=== PATIENT | female | born 1985 | race Caucasian/White ===

== ENCOUNTER 2020-01-01 08:49 | Outpatient (RCR) | payer OTHER, SELFPAY | END 2020-03-28 09:29 | disposition home or self-care (01) | LOC: ANHOBOP 08:49 | PROVIDERS: PCP Internal Medicine; Visit Provider Obstetrics & Gynecology | DX: O99.89 Other specified diseases and conditions complicating pregnancy, childbirth and the puerperium (principal); Z3A.27 27 weeks gestation of pregnancy | CPT/HCPCS: 59025 ==

== ENCOUNTER 2020-02-01 12:00 | Observation (INO) | payer OTHER, SELFPAY ==
[2020-02-01 12:15] VITALS: BP 115/65; PULSE 111
[2020-02-01 12:30] VITALS: BP 112/63; PULSE 105
[2020-02-01 12:45] VITALS: BP 112/60; PULSE 101
[2020-02-01 13:33] VITALS: BP 112/60; PULSE 101; RESP 13; TEMP 36.8
--- NOTE | 2020-02-03 07:41 | PM.OBTRLD ---
OB - Triage/Final Diagnosis Visit Information Reason for evaluation: threatened labor
== END 2020-02-01 13:41 | disposition home or self-care (01) ==
PROVIDERS: Admitting Provider Obstetrics & Gynecology; PCP Internal Medicine; Visit Provider Obstetrics & Gynecology
DX: O47.9 False labor, unspecified (principal); Z3A.00 Weeks of gestation of pregnancy not specified
CPT/HCPCS: G0378; G0379

== ENCOUNTER 2020-03-26 17:57 | Inpatient (IN) | payer OTHER, SELFPAY ==
[2020-03-26] VITALS (24 sets, daily range): BP systolic 86–129; BP diastolic 51–90; PULSE 78–146; TEMP 36.2–36.7
--- NOTE | 2020-03-26 18:47 | LDADM ---
This patient, Sharon Acuña, was admitted to Labor/Delivery/Recovery 108 on 03/26/20 at 17:57. Plans for labor, pain management and were discussed with patient. Patient/family oriented to hospital policies and general routines including ID bracelet, bed and alarms, visiting hours, pain management, procedures, bathroom and other care routines, personal items, smoking policy, room service/diet and guest tray routines, security routines, and visiting hours. Patient/Family are encouraged to report perceived risks to care and to ask questions if they do not understand what they are told or what they should do. See OBIX for further documentation.
[2020-03-26 19:02] LABS: Basophils Percent Auto 0.2 % (0.2-1.2); Eosinophils Percent Auto 0.4 % (0-4.4); Hematocrit 35.9 % (37.0-47.0); Hemoglobin 12.2 g/dL (12.0-15.0); Immature Granulocyte Absolute 0.04 K/mm3 (0.00-0.031); Immature Granulocyte Percent A 0.4 % (0-0.5); Lymphocytes Absolute Auto 1.87 K/mm3 (0.9-3.2); Lymphocytes Percent Auto 20.9 % (18.3-44.2); Mean Corpuscular Volume 88.2 fl (80-100); Mean Platelet Volume 10.5 fl (7.4-10.4); Monocytes Absolute Auto 0.6 K/mm3 (0.1-0.6); Monocytes Percent Auto 6.5 % (2.6-8.5); Neutrophils Absolute Auto 6.4 K/mm3 (1.3-6.7); Neutrophils Percent Auto 71.6 % (45.5-73.1); Platelet Count Result 276 k/mm3 (150-375); Red Blood Count 4.07 M/mm3 (4.2-5.4); Red Cell Distribution Width 12.6 % (11.5-14.5)
[2020-03-26] MEDS: DINOPROSTONE 10 MG VAG INSERT VAGINAL (19:58)
[2020-03-27] VITALS (150 sets, daily range): BP systolic 59–130; BP diastolic 19–108; PULSE 61–140; RESP 16–18; TEMP 36.1–37.2; O2SAT 94–100; BMI 38.7
[2020-03-27] MEDS: LACTATED RINGERS 1,000 ML 125 ML IV CONT ×2 (05:38→09:00)
[2020-03-27] MEDS: OXYTOCIN 30 UNITS/NS 500 ML 30 UNITS/500 ML BAG IV CONT (05:39)
[2020-03-27] MEDS: SODIUM CHLORIDE 0.9% IV 300 ML 600 ML I-UTERINE (07:15)
[2020-03-27 07:30] LABS: Rapid Plasma Reagin Non-Reactive (NonReactive)
--- NOTE | 2020-03-27 09:12 | WPDANESEPPF ---
Anes - Initial Pre Proc Eval Date/Time: 03/27/20 09:12 Surgeon: Azar Gonzalez MD Pre Op Diagnosis: Induction of Labor Patient Data Age: 35 Gender: F Height: 5 ft 6 in Weight: 109 kg Last Vital Signs Temp 36.6 C 03/27/20 07:30 Pulse 106 H 03/27/20 09:12 BP 94/69 L 03/27/20 09:12 Pulse Ox 96 03/27/20 09:11 Allergies Allergy/AdvReac Type Severity Reaction Status Date / Time Penicillins Allergy Intermediate Nausea,ITCH Verified 03/05/20 12:37 ING codeine AdvReac Mild Nausea and Verified 03/05/20 12:37 Vomiting Home Medications Medication Instructions Recorded Confirmed Type 1 tablet PO DAILY 02/01/20 03/27/20 History Laboratory Tests 03/26/20 03/26/20 03/26/20 18:32 18:32 18:32 WBC 9.0 K/mm3 K/mm3 (4.5-10.0) RBC 4.07 M/mm3 L M/mm3 (4.2-5.4) Hgb 12.2 g/dL g/dL (12.0-15.0) Hct 35.9 % L % (37.0-47.0) MCV 88.2 fl fl (80-100) MCH 30.0 pg pg (26-34) MCHC 34.0 g/dl g/dl (32-36) RDW 12.6 % % (11.5-14.5) Plt Count 276 k/mm3 k/mm3 (150-375) MPV 10.5 fl H fl (7.4-10.4) Immature Gran % (Auto) 0.4 % % (0-0.5) Neut % (Auto) 71.6 % % (45.5-73.1) Lymph % (Auto) 20.9 % % (18.3-44.2) [place] % (Auto) 6.5 % % (2.6-8.5) Eos % (Auto) 0.4 % % (0-4.4) Baso % (Auto) 0.2 % % (0.2-1.2) Lymph # (Auto) 1.87 K/mm3 K/mm3 (0.9-3.2) [place] # (Auto) 0.6 K/mm3 K/mm3 (0.1-0.6) Eos # (Auto) 0.0 K/mm3 K/mm3 (0-0.3) Baso # (Auto) 0.0 K/mm3 K/mm3 (0.0-0.1) Abs Immat Gran (auto) 0.04 K/mm3 H K/mm3 (0.00-0.031) Absolute Neuts (auto) 6.4 K/mm3 K/mm3 (1.3-6.7) Absolute Nucleated RBC 0.0 K/mm3 K/mm3 (0.0-0.012) Nucleated RBC % 0.0 % % (0.0-0.2) RPR Non-reactive (NonReactive) Blood Type A Positive Antibody Screen Negative Patient hx anesthesia problems: none Family hx anesthesia problems: none PMFSH Family History Family History Mother Bipolar 1 disorder Diabetes mellitus Chronic obstructive pulmonary disease Hypothyroid Grandparent Breast cancer Diabetes mellitus Chronic obstructive pulmonary disease Social History Social History Years smoked: 15 Smoking status: Former smoker Tobacco type: cigarettes Second hand tobacco smoke exposure: No Substance use: never Spiritual care concerns: No Anes - Eval Final PreProcedure Day of Procedure 03/27/20 09:12 Patient weight: obese Heart: regular rate and rhythm Lungs: decreased breath sounds Neurological: alert and oriented ASA classification: II Emergent: no Anesthetic plan: proceed Anesthesia type and monitoring: regional epidural and standard monitoring Informed Consent: The patient's anesthetic plan and its attendant risks and benefits were discussed with the patient/family/POA. Questions were solicited and answers provided to the satisfaction of the patient/family/POA.
[2020-03-27] MEDS: SODIUM CHLORIDE 0.9% IV 1,000 ML 150 ML I-UTERINE (09:19)
--- NOTE | 2020-03-27 12:16 | WPDHPUPDATE1 ---
History and Physical Update Update Date/Time: 03/27/20 12:16 History and Physical has been reviewed, including an updated exam of the patient. There are NO changes in the patient's condition. Risks, benefits, and alternatives have been discussed and questions answered. Patient agrees to proceed with procedure.
--- NOTE | 2020-03-27 12:16 | WPDOBADMIT ---
Obstetrics - Admit Note Admission Note: record reviewed. No pertinent additions to the history and/or any subsequent changes in the physical findings that are not consistent with the expected course of the were found. Elective induction of labor due to significant change in size compared to her last delivery and desires and of . Additions to the history and/or subsequent changes in the physical findings follow. None.
--- NOTE | 2020-03-27 12:17 | PM.OBPRVD ---
OB - Delivery Note Procedure Intrapartal events: Intolerance Route of delivery: Indication for instrumentation: nonreassuring FHR tracing Specimen: Yes Estimated blood loss (mL): 500 Anesthesia type: Epidural Disposition: floor Narrative: Patient prepped and draped in usual manner for this procedure. Pfannenstiel incision was made and carried down to the fascia. Fascial incision was extended bilaterally the length of the skin incision and then superiorly inferiorly dissected away from the rectus muscles. Peritoneum was entered bladder flap was developed uterus scored with clear fluid noted. Lower segment once incised bilaterally length of the lower segment with vertex delivered section naso-oropharynx rest of baby was delivered. Nuchal cord was noted and reduced and placenta was removed manually without difficulty. Uterus was exteriorized cleared of membranes and clots and then closed using 0 Monocryl running interlocking manner with good approximation hemostasis noted. Uterus was returned to the abdomen gutters were cleared of serosanguineous fluid and clots. All subfascial tissue was noted be hemostatic and fascia was approximated using 0 Vicryl suture from left angle midline right angle midline subcutaneous tissue was approximated using 0 plain suture. Skin was then approximated using wide alhaji and the procedure was considered terminated with immediate postop condition mother and baby both excellent. [place] Baby Weeks of gestation at delivery: 39 gender: Male Weight (pounds): 7 Weight (ounces): 15 score one minute: 8 score five minutes: 9
[2020-03-27] MEDS: OXYTOCIN 30 UNITS/NS 500 ML 30 UNITS/500 ML BAG 125 UNITS IV CONT (12:45)
--- NOTE | 2020-03-27 14:30 | PC.NURSE ---
PT arrived on unit via stretcher accompanied by spouse and and taken to room 284. PT introductions made and pt was oriented to room 284 and surrounding area. Plan of care discussed per post op c section, pain management, breast feeding, daily care activities. PT moved from stretcher to bed via maxi air without difficulty. Welcome packet discussed and reviewed. PT verbalized understanding of such care.
[2020-03-27] MEDS: SIMETHICONE 80 MG TAB.CHEW PO (16:33)
[2020-03-27] MEDS: KETOROLAC 30 MG/ML VIAL (*BKC) IV PUSH (16:34)
[2020-03-27] MEDS: DEXTROSE 5%/0.45% SOD CHL 1,000 ML 125 ML IV CONT (17:35)
[2020-03-27] MEDS: ONDANSETRON INJ 4 MG/2 ML VIAL IV PUSH (17:47)
[2020-03-27] MEDS: LORATADINE 10 MG TABLET PO (22:36)
[2020-03-27] MEDS: IBUPROFEN 600 MG TABLET PO (22:36)
[2020-03-28 00:20] VITALS: BP 94/56; PULSE 82; RESP 12; TEMP 36.9
[2020-03-28 05:10] VITALS: BP 100/58; PULSE 81; RESP 12; TEMP 36.6
[2020-03-28 05:29] LABS: Basophils Percent Auto 0.2 % (0.2-1.2); Eosinophils Absolute Auto 0.1 K/mm3 (0-0.3); Eosinophils Percent Auto 0.6 % (0-4.4); Hemoglobin 10.4 g/dL (12.0-15.0); Immature Granulocyte Absolute 0.04 K/mm3 (0.00-0.031); Immature Granulocyte Percent A 0.4 % (0-0.5); Lymphocytes Absolute Auto 2.11 K/mm3 (0.9-3.2); Lymphocytes Percent Auto 19.3 % (18.3-44.2); Mean Corpuscular HGB Conc 33.5 g/dl (32-36); Mean Corpuscular Hemoglobin 30.6 pg (26-34); Mean Corpuscular Volume 91.2 fl (80-100); Mean Platelet Volume 10.1 fl (7.4-10.4); Monocytes Absolute Auto 0.8 K/mm3 (0.1-0.6); Monocytes Percent Auto 6.8 % (2.6-8.5); Neutrophils Percent Auto 72.7 % (45.5-73.1); Platelet Count Result 214 k/mm3 (150-375); Red Cell Distribution Width 12.8 % (11.5-14.5)
[2020-03-28 08:20] VITALS: BP 99/56; PULSE 88; RESP 18; TEMP 36.6; O2SAT 100
--- NOTE | 2020-03-28 08:50 | PC.NURSE ---
Consult with pt., mother reports she has been using a nipple shield for all feedings. Requested mother call out next feeding for assist latching without shield.
[2020-03-28] MEDS: IBUPROFEN 600 MG TABLET PO ×3 (08:54→22:28)
[2020-03-28] MEDS: DOCUSATE SODIUM 100 MG CAPSULE PO ×2 (08:54→15:55)
[2020-03-28] MEDS: MULTIVIT/MIN/PREN/FOL AC/IRON TABLET 1 TAB PO (08:54)
--- NOTE | 2020-03-28 09:42 | PM.OBDSVD ---
OB - DS: Summary OB Procedures : None OB Procedures Intrapartum: OB Procedures: : None Peripartum Data Procedures: Procedures Operation Date: 03/27/20 11:30 Actual Procedures Side Surgeon p Section Azar Gonzalez MD Time Spent with Patient Time attestation: Total time spent providing and/or coordinating discharge services: DS: Data Data Completed and Pending Labs on day of discharge: Labs from last 24 hours 03/28/20 04:36 WBC 11.0 H RBC 3.40 L Hgb 10.4 L Hct 31.0 L MCV 91.2 MCH 30.6 MCHC 33.5 RDW 12.8 Plt Count 214 MPV 10.1 Immature Gran % (Auto) 0.4 Neut % (Auto) 72.7 Lymph % (Auto) 19.3 [place] % (Auto) 6.8 Eos % (Auto) 0.6 Baso % (Auto) 0.2 Lymph # (Auto) 2.11 [place] # (Auto) 0.8 H Eos # (Auto) 0.1 Baso # (Auto) 0.0 Abs Immat Gran (auto) 0.04 H Absolute Neuts (auto) 8.0 H Absolute Nucleated RBC 0.0 Nucleated RBC % 0.0 Discharge Plan Discharge Discharging Clinician: Azar Gonzalez Patient Disposition: Home, Self-Care Activity: as tolerated Diet: as tolerated Wound Care Instructions: incision open to air Discharge Instructions: alhaji out wednesday in office Patient Instructions: Antibiotic Form Stand Alone Forms: General Discharge Information Follow-up/Referrals: Azar Gonzalez MD [Physician] - 3 Weeks Discharge Medications: New hydrocodone-acetaminophen 5-325 mg Tablet 1 tab PO Q3H PRN (Reason: Moderate Pain (4-6)) Qty: 20 RF: 0 ibuprofen 600 mg Tablet 600 mg PO Q6H PRN (Reason: Cramping) Qty: 30 RF: 0 Continued 28-800 mg-mcg Tablet 1 tablet PO DAILY RF: 0 Date of admission: 03/26/20 17:57 Primary Care Provider: Naye,Kenn Jarvis Admitting Provider: Azar Gonzalez Attending physician on admission: Azar Gonzalez
--- NOTE | 2020-03-28 10:19 | WPDANLDNPN2 ---
Anes-Prog Note L&D-Neuraxial Date/Time: 03/28/20 10:19 Neuraxial medications: intrathecal PF morphine Opiod-related complaints: none Patient feedback: Patient satisfied with post-operative pain management.
--- NOTE | 2020-03-28 10:19 | WPDANLDPN2 ---
Anes-Prog Note L&D Date/Time: 03/28/20 10:19 Comfortable throughout: section Neuraxial method: spinal Epidural/Spinal procedure site: clean & non-tender Neuro status: Neuro function grossly intact. Cardiovascular status: normal Respiratory status: normal Airway patency: baseline Mental status: baseline Post-Op hydration status: normal Vital Signs: Last Vital Signs Temp 36.6 C 03/28/20 08:20 Pulse 88 03/28/20 08:20 Resp 18 03/28/20 08:20 BP 99/56 L 03/28/20 08:20 Pulse Ox 100 03/28/20 08:20 I/O: Intake & Output 03/27/20 03/28/20 03/28/20 23:59 07:59 15:59 Intake Total 600 2100 Output Total 400 2000 550 Balance 200 100 -550 Post-procedural complaints: none Patient feedback: Patient satisfied with anesthetic care.
--- NOTE | 2020-03-28 12:05 | PC.NURSE ---
Consulted with patient, mother report she used nipple shield fir with first for several months. Mother had milk supply issued and supplemented with first child. Discussed many factor may influence milk supply and she may have adequate supply with this child. Reviewed feeding cues, frequencies, duration of feedings, feeding elimination flow sheet, and signs of adequate intake. Demonstrated stimulation techniques to wake for feeding. Assisted with to breast. Reviewed positioning/alignment in cross cradle, holding breast in U hold and guided asymmetrical latch on. Discussed rational for each. Infant was able to latch correctly without shield. Infant nursed eagerly, with steady draws and frequent swallowing noted. Reviewed signs of a correct latch, effective nursing and suck swallow ratio. was able to maintain latch without discomfort to mother. Nipple care reviewed. Instructed mother to call out for RN assistance if she is unable to latch infant for feeding or she has discomfort with nursing. Instructed feeding should be initiated three hours from start of last feeding or if feeding cues are noted before. Mother voiced understanding of information shared.
--- NOTE | 2020-03-28 16:30 | PC.NURSE ---
Mother called out for observation of latch. Mother to independently latch infant with appropriate positioning/alignment without shield. She denies any nipple discomfort, is nursing with long draws and freq swallowing noted. Instructed mother to call out for future feedings if assistance is needed.
[2020-03-28 22:00] VITALS: BP 109/58; PULSE 88; RESP 20; TEMP 37.1
[2020-03-29] MEDS: IBUPROFEN 600 MG TABLET PO ×2 (06:40→13:41)
[2020-03-29] MEDS: MULTIVIT/MIN/PREN/FOL AC/IRON TABLET 1 TAB PO (08:24)
[2020-03-29] MEDS: DOCUSATE SODIUM 100 MG CAPSULE PO (08:24)
[2020-03-29] MEDS: MEASLES,MUMPS,RUBELLA VACCINE 0.5 ML VIAL (08:24)
[2020-03-29 08:30] VITALS: BP 99/63; PULSE 78; RESP 18; TEMP 36.9; O2SAT 96
--- NOTE | 2020-03-29 13:40 | PC.NURSE ---
Patient instructed to view the discharge video Mother & Baby Care, The First Two Weeks video. Patient was given the opportunity and encouraged to ask questions. Patient verbalized understanding of information shared and has been given the mother/baby guide for home reference.
[2020-04-01 09:53] VITALS: BP 113/76; PULSE 86; RESP 20; TEMP 37.1; O2SAT 99
--- NOTE | 2020-04-03 07:20 | PM.OBDSVD ---
DS: Diagnosis Admitting Diagnosis Admitting Diagnosis: Encounter for supervision of normal , unspecified, third trimester OB - DS: Summary OB Procedures : None OB Procedures Intrapartum: OB Procedures: : None Peripartum Data Procedures: Procedures Operation Date: 03/27/20 11:30 Actual Procedures Side Surgeon p Section Azar Gonzalez MD Time Spent with Patient Time attestation: Total time spent providing and/or coordinating discharge services: Discharge Plan Discharge Consulting providers: Rodrigo Rodriguez Discharging Clinician: Azar Gonzalez Patient Disposition: Home, Self-Care Activity: as tolerated Diet: as tolerated Wound Care Instructions: incision open to air Discharge Instructions: alhaji out wednesday in office Education: Mom and Baby Guide and Preeclampsia Handout Given to: Mother Follow-Up: Call your delivering provider's office for an appointment to be seen in: 3 weeks Mom and baby should come to the [facility] for the follow-up appointment. Appointment Date/Time: April 01, 2020 at 10:00 am What to expect at your follow-up visit: Physical Assessment Call [phone] if you are unable to keep your appointment time. BREAST CARE: 1. Wear a snug supportive bra. 2. For engorgement discomfort: Breast Feeding: A. Apply warm moist washcloths B. Express milk as needed to relieve engorgement C. Wear loose clothing 3. For sore nipples: A. Identify correct latch-on B. Apply warm moist washcloths before and after nursing C. Air dry nipples after nursing D. May apply Lansinoh cream to nipples ABDOMINAL INCISION: (if applicable) 1. Allow incision to air dry 2. Do NOT use lotions for powders on your incision 3. When showering, allow soap and water to run over the incision, but do not wash incision EPISIOTOMY/PERINEAL CARE: 1. Until bleeding stops, use your maricarmen bottle after urinating 2. Change your pad frequently throughout the day 3. No tub baths until seen by your physician - You may shower ACTIVITY: 1. Rest as much as possible. 2. Do not exercise or lift anything heavier than your baby (such as laundry or other children.) 3. Avoid stairs or driving as much as possible. 4. Do not put anything into the vagina. No douching, tampons, or sexual activity until seen by physician. NOTIFY PHYSICIAN IF YOU HAVE ANY QUESTIONS OR IF ANY OF THE FOLLOWING SYMPTOMS OCCUR: 1. If your incision becomes red, swollen, or more painful than what you have experienced in the hospital. 2. If your vaginal bleeding becomes foul smelling. 3. If your vaginal bleeding becomes more heavy than a period or if your bleeding changes from pink to bright red. However, you may pass an occasional walnut-sized clot once or twice for the first week . 4. If you experience a sharp, shooting pain in you calves. 5. If you discover a hard, reddened area on your breast or if you experience flu-like symptoms. DIET: 1. Eat regular, well-balanced meals. 2. Drink plenty of fluids daily. If , drink to thirst. Stand Alone Forms: General Discharge Information Follow-up/Referrals: Azar Gonzalez MD [Physician] - 3 Weeks Discharge Medications: New hydrocodone-acetaminophen 5-325 mg Tablet 1 tab PO Q3H PRN (Reason: Moderate Pain (4-6)) Qty: 20 RF: 0 ibuprofen 600 mg Tablet 600 mg PO Q6H PRN (Reason: Cramping) Qty: 30 RF: 0 Continued 28-800 mg-mcg Tablet 1 tablet PO DAILY RF: 0 Date of admission: 03/26/20 17:57 Primary Care Provider: Naye,Kenn Jarvis Admitting Provider: Azar Gonzalez Discharge Date/Time: 03/29/20 14:20 Attending physician on admission: Azar Gonzalez
--- NOTE | 2020-04-30 07:11 | PM.IMHP ---
H&P: HPI History of Present Illness Chief complaint: Induction of Labor Narrative: Sharon Acuña is a 35 year old female 2 para 1011 presents for elective induction of labor she has had care with no significant abnormalities records are on the chart. Review of Systems Review of Systems: All systems reviewed & are unremarkable except as noted in HPI and below PMFSH Family History Family History Mother Bipolar 1 disorder Diabetes mellitus Chronic obstructive pulmonary disease Hypothyroid Grandparent Breast cancer Diabetes mellitus Chronic obstructive pulmonary disease Social History Social History Years smoked: 15 Smoking status: Former smoker Tobacco type: cigarettes Second hand tobacco smoke exposure: No Substance use: never Spiritual care concerns: No Meds Home Medications and Allergies Home Medications Medication Instructions Recorded Confirmed Type 1 tablet PO DAILY 02/01/20 03/27/20 History hydrocodone-acetaminophen 1 tab PO Q3H PRN #20 tablet 03/28/20 Rx ibuprofen 600 mg PO Q6H PRN #30 tablet 03/28/20 Rx Allergies Allergy/AdvReac Type Severity Reaction Status Date / Time Penicillins Allergy Intermediate Nausea,ITCH Verified 03/05/20 12:37 ING codeine AdvReac Mild Nausea and Verified 03/05/20 12:37 Vomiting Exam Const: General: no acute distress Resp: Auscultation: clear to auscultation bilaterally Cardio: Rate: regular rate Rhythm: regular rhythm GI: GI Palp: Yes Soft to palpation Other: Fundal height 40cm. heart tones 130-140. Assessment and Plan Assessment and plan (1) Term : Code(s): Z34.90 - Encounter for supervision of normal , unspecified, unspecified trimester Status: Acute Additional Plan 1. Amniotomy 2. Pitocin per protocol 3. Expect vaginal delivery
== END 2020-03-29 14:20 | disposition home or self-care (01) | DRG 788 ==
LOC: ANHLDR 18:00 → ANHOB2 03-27 14:56
PROVIDERS: Admitting Provider Obstetrics & Gynecology; PCP Internal Medicine; Visit Provider Obstetrics & Gynecology
PROC: 10D00Z1 Extraction of Products of Conception, Low, Open Approach (ICD-10-PCS; CPT 59514; 2020-03-27 11:30)
DX: O36.8330 Maternal care for abnormalities of the fetal heart rate or rhythm, third trimester, not applicable or unspecified (principal); Z37.0 Single live birth; Z3A.39 39 weeks gestation of pregnancy; O99.214 Obesity complicating childbirth; E66.9 Obesity, unspecified; O69.81X0 Labor and delivery complicated by cord around neck, without compression, not applicable or unspecified
CPT/HCPCS: 36415; 85025; 86592; 86850; 86900; 86901; 90710; A9270; J0131; J0690; J1885; J2274; J2405; J2590; J2795; J7030; J7120

== ENCOUNTER → 2021-12-15 13:39 | Outpatient (CLI) | payer OTHER, SELFPAY ==
--- NOTE | ~2021-12-15 | CT_ITS ---
EXAMINATION: CT brain wo con DATE: 12/15/2021 13:57 INDICATION: Left frontal headache. Scalp tenderness. TECHNIQUE: Computed tomography (CT) of the head was performed without intravenous contrast. The mA wa s adjusted according to patient size. Iterative reconstruction technique was employed. Exam dose: 59 9.57 mGy-cm total exam DLP. COMPARISON: None FINDINGS: No intracranial mass lesion or hemorrhage or cerebrovascular accident. No midline shift or mass effect. Normal hurtado-white matter differentiation. Normal ventricular size. No subdural or epidur al hematoma. No fracture or bone destruction of the cranial vault. Included paranasal sinuses and mastoid air cell s are unremarkable. IMPRESSION: Negative Reviewed, dictated and finalized at [facility] Reviewed, dictated and finalized at [facility]. OPERATOR IMPRESSION: Negative
== END ==
PROVIDERS: PCP Physician Assistant; Visit Provider Physician Assistant
DX: R51.9 Headache, unspecified (principal)
CPT/HCPCS: 70450

== ENCOUNTER 2022-04-06 14:38 | Emergency (ER) | payer OTHER, SELFPAY ==
[2022-04-06 14:47] VITALS: BP 133/69; PULSE 95; RESP 16; TEMP 36.9; O2SAT 100
[2022-04-06 14:49] VITALS: BP 133/69; PULSE 95; RESP 16; TEMP 36.9; O2SAT 100
--- NOTE | 2022-04-06 15:09 | ED.SKABFB ---
HPI - Skin/Abscess/Foreign Bdy General Chief complaint: Skin/Abscess/Foreign Body Stated complaint: boil on left inner thigh Time Seen by Provider: 04/06/22 15:10 Source: patient and RN notes reviewed Mode of arrival: ambulatory Limitations: no limitations History of Present Illness HPI narrative: 37-year-old female presents with concern for a boil on her left inner thigh near her groin. 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 Reports over the last 2 weeks it started getting larger and over the last 3 to 4 days has gotten red, inflamed and had a small amount of brown drainage. She reports area is tender to touch. She denies fever, body aches, chills, sweats. MD complaint: abscess/boil Related Data Allergies Allergy/AdvReac Type Severity Reaction Status Date / Time Penicillins Allergy Intermediate Nausea,ITCH Verified 04/06/22 14:48 ING codeine AdvReac Mild Nausea and Verified 04/06/22 14:48 Vomiting Review of Systems Review of Systems: CONSTITUTIONAL: Denies malaise, chills, sweats, or fever. EYES: Denies redness, or discharge. ENT: Denies rhinorrhea, congestion CARDIOVASCULAR: Denies chest pain, palpitations, or edema. RESPIRATORY: Denies cough or dyspnea. GASTROINTESTINAL: Denies abdominal pain, nausea, vomiting SKIN: Reports boil on her left inner thigh MUSCULOSKELETAL: Denies joint pain or myalgia. NEUROLOGIC: Denies headache. All systems reviewed & are unremarkable except as noted in HPI and below PMFSH Family History Family History Mother Bipolar 1 disorder Diabetes mellitus Chronic obstructive pulmonary disease Hypothyroid Grandparent Breast cancer Diabetes mellitus Chronic obstructive pulmonary disease Social History Social History Years smoked: 15 Smoking status: Former smoker Tobacco type: cigarettes Second hand tobacco smoke exposure: No Substance use: never Spiritual care concerns: No Comments At time of signature, agree with nursing past medical, surgical, social and family history. There is no relevant family history pertinent to the presenting complaint Exam Narrative: GENERAL: Well-appearing, well-nourished, and in no acute distress. HEAD: Normocephalic, atraumatic. EYES: PERRLA, conjunctivae clear ENT: Mucous membranes moist. NECK: Supple. No lymphadenopathy CHEST: Clear to auscultation. No respiratory distress. HEART: Regular rate and rhythm. SKIN: Warm, dry. Palpable nodule approximately 2.5 cm in diameter beneath the skin surrounded by approximately 7 cm of erythema and mild edema with warmth NEURO: Alert and oriented x3. PSYCH: Normal mood and affect Course Course Emergency Course: Patient is aware of diagnosis, understands and agrees to treatment plan. Anticipatory guidance given. Patient agrees to follow-up as directed and is aware of reasons to seek care at the emergency department. Portions of this record may have been created with voice recognition software Level of Care: Express Care Visit Vital Signs Vital signs: Vital Signs Temperature 98.4 F 04/06/22 14:47 Pulse Rate 95 04/06/22 14:47 Respiratory Rate 16 04/06/22 14:47 Blood Pressure 133/69 04/06/22 14:47 Pulse Oximetry 100 04/06/22 14:47 Temperature 98.4 F 04/06/22 14:49 Pulse Rate 95 04/06/22 14:49 Respiratory Rate 16 04/06/22 14:49 Blood Pressure 133/69 04/06/22 14:49 Pulse Oximetry 100 04/06/22 14:49 Reviewed. Procedures Abscess I/D lower extremity: Date of Incision: 04/06/22 Time of Incision: 15:14 Side (if applicable): left Local Anesthetic: lidocaine 1% Amount of anesthesia used (mL): 3 Technique: incised with #11 blade Amount of fluid expressed (mL): 3 Irrigation: Yes Packing used?: no
== END 2022-04-06 15:36 | disposition home or self-care (01) ==
PROVIDERS: Emergency Provider Nurse Practitioner; PCP Physician Assistant
DX: L02.416 Cutaneous abscess of left lower limb (principal); Z87.891 Personal history of nicotine dependence
CPT/HCPCS: 10060; 87070; 87075; 87076; 87205; 99213; G0463

== ENCOUNTER 2022-04-19 13:28 | Emergency (ER) | payer OTHER, SELFPAY ==
--- NOTE | ~2022-04-19 | US_ITS ---
EXAMINATION: US soft tissue LE DATE: 04/19/2022 15:43 INDICATION: TECHNIQUE: Grayscale and Doppler ultrasound images of the left thigh in the area of clinical concern were obtained. COMPARISON: None. FINDINGS: 1.0 x 1.9 x 0.4 cm elliptical, fairly well-circumscribed hypoechoic subdermal lesion with s ome irregular margins, according to the patient this is the site of prior drainage. No internal color Doppler flow. No significant flocculence on compression. IMPRESSION: 1. Hypoechoic dermal lesion, in the location of previously drained abscess, may represent residual/r esolving abscess or phlegmon, or new pustule/infected cyst. Reviewed, dictated and finalized at location K. IMPRESSION: 1. Hypoechoic dermal lesion, in the location of previously drained abscess, ma y represent residual/resolving abscess or phlegmon, or new pustule/infected cys t.
[2022-04-19 13:30] VITALS: BP 118/59; PULSE 89; RESP 16; TEMP 36.4; O2SAT 98
--- NOTE | 2022-04-19 13:42 | ED.SKABFB ---
HPI - Skin/Abscess/Foreign Bdy General Chief complaint: Skin/Abscess/Foreign Body Stated complaint: abcess to left groin area Time Seen by Provider: 04/19/22 13:34 Source: patient Mode of arrival: ambulatory Limitations: no limitations History of Present Illness HPI narrative: This is a 37 year old female that presents to the ER for swelling and redness to the left upper thigh. Reports she had the area drained earlier this month. She finished a course of Bactrim with relief and the area was healing. Reports over the last couple of days the area has started to become painful and red again. Reports some drainage from the area. Denies fevers. Related Data Allergies Allergy/AdvReac Type Severity Reaction Status Date / Time Penicillins Allergy Intermediate Nausea,ITCH Verified 04/19/22 13:30 ING codeine AdvReac Mild Nausea and Verified 04/19/22 13:30 Vomiting Review of Systems Review of Systems: CONSTITUTIONAL: Denies fever SKIN: Reports redness and swelling All systems reviewed & are unremarkable except as noted in HPI and below PMFSH Past Medical History Medical History (Updated 04/19/22 @ 16:35 by Beatriz Arce PA-C) No active medical problems Family History Family History Mother Bipolar 1 disorder Diabetes mellitus Chronic obstructive pulmonary disease Hypothyroid Grandparent Breast cancer Diabetes mellitus Chronic obstructive pulmonary disease Social History Social History Years smoked: 15 Smoking status: Former smoker Tobacco type: cigarettes Second hand tobacco smoke exposure: No Substance use: never Spiritual care concerns: No Exam Narrative: GENERAL: Well-appearing, well-nourished, and in no acute distress. HEAD: Normocephalic, atraumatic. EYES: EOMI. EXTREMITIES: Normal range of motion. 2cm cystic lesion to the left upper thigh with mild surrounding redness. No lymphangitic streaking SKIN: Warm, dry, no rash. NEURO: No focal deficits. Alert and oriented x3. PSYCH: Normal mood and affect Course Vital Signs Vital signs: Vital Signs Temperature 97.5 F L 04/19/22 13:30 Pulse Rate 89 04/19/22 13:30 Respiratory Rate 16 04/19/22 13:30 Blood Pressure 118/59 L 04/19/22 13:30 Pulse Oximetry 98 04/19/22 13:30 Temperature 97.5 F L 04/19/22 13:30 Pulse Rate 89 04/19/22 13:30 Respiratory Rate 16 04/19/22 13:30 Blood Pressure 118/59 L 04/19/22 13:30 Pulse Oximetry 98 04/19/22 13:30 Procedures Abscess I/D lower extremity: Date of Incision: 04/19/22 Time of Incision: 16:32 Side (if applicable): left Local Anesthetic: lidocaine 1% and with epi Amount of anesthesia used (mL): 2 Technique: incised with #11 blade Packing used?: none I&D Results: Blood MDM - Skin/Abscess/Foreign Bdy MDM Narrative Medical decision making narrative: Patient presents to the ER for possible abscess to the left groin area. She is afebrile and nontoxic appearing. Mild surrounding cellulitis of a cystic lesion is noted. US of the area showed a hypoechoic dermal lesion which could represent residual/resolving abscess or phlegmon or new pustule/infected cyst. I attempted to drain this area which only produced blood. Patient will be started on oral antibiotics and given follow-up with plastics since this is now become recurrent for her. She is stable and felt appropriate for further outpatient evaluation. She was given warnings to return to the ER Imaging Data Radiologist's impression: ITS Impressions Soft Tissue Ultrasound 04/19/22 15:45 IMPRESSION: 1. Hypoechoic dermal lesion, in the location of previously drained abscess, may represent residual/resolving abscess or phlegmon, or new pustule/infected cyst. Critical Care Time Critical Care Time Critical Care Time: No Discharge Plan Disc
== END 2022-04-19 17:06 | disposition home or self-care (01) ==
PROVIDERS: Emergency Provider Emergency Medicine; PCP Physician Assistant
DX: L02.214 Cutaneous abscess of groin (principal); Z87.891 Personal history of nicotine dependence
CPT/HCPCS: 10060; 76882; 99284; A9270

== ENCOUNTER 2022-07-09 15:49 | Outpatient (CLI) | payer OTHER, SELFPAY ==
--- NOTE | ~2022-07-09 | US_ITS ---
EXAMINATION: US carotid duplex BI DATE: 07/09/2022 16:22 INDICATION: Left carotid bruit TECHNIQUE: Grayscale, color Doppler, and pulsed Doppler images of the cervical carotid arteries were obtained. The degree of vessel stenosis is placed in one of the following categories: normal, <50%, 5 0-69%, >=70% but less than near-occlusion, near-occlusion, or total occlusion. Note that percent sten osis relative to normal distal artery lumen diameter is indirectly measured from velocity measurement s as described by Bebeto, et al. Radiology 2003; 229:340-346. Notes: Normal: Peak systolic velocity <125 centimeters/sec and no plaque <50%. Peak systolic velocity <125 ( EDV <40; ICA/CCA PSV ratio <2.0; used these factors only a tandem lesions or low cardiac output or co ntralateral disease) 50-69 %: PSV 125-230 (EDV 40-100; ratio 2-4) >= 70% but less than near occlusion: PSV greater than 230 (EDV > 100; ratio> 4.0) Near Occlusion: PSV that is variable; markedly narrowed lumen Occlusion: Absent flow on color/spectral Doppler and no lumen on hurtado scale. COMPARISON: None. FINDINGS: RIGHT: The right common carotid artery (CCA) peak systolic velocity (PSV) is 108 cm/s. The right internal ca rotid artery (ICA) PSV is 147 cm/s. The right ICA end-diastolic velocity (EDV) is 43 cm/s. The right ICA/CCA PSV ratio is 1.4. The external carotid artery (ECA) PSV is 137 cm/s. There is antegrade flow in the right vertebral artery. LEFT: The left CCA PSV is 134 cm/s. The left ICA PSV is 129 cm/s. The left ICA EDV is 43 cm/s. The left ICA /CCA PSV ratio is 1.0. The ECA PSV is 136 cm/s. There is antegrade flow in the left vertebral artery . IMPRESSION: 1. 50-69% stenosis in the right internal carotid artery by sonographic criteria. 2. 50-69% stenosis in the left internal carotid artery by sonographic criteria. Reviewed, dictated and finalized at location A. IMPRESSION: 1. 50-69% stenosis in the right internal carotid artery by sonographic criteria . 2. 50-69% stenosis in the left internal carotid artery by sonographic criteria.
== END 2022-07-09 15:50 | disposition home or self-care (01) ==
PROVIDERS: PCP Physician Assistant; Visit Provider Physician Assistant
DX: R09.89 Other specified symptoms and signs involving the circulatory and respiratory systems (principal); I65.23 Occlusion and stenosis of bilateral carotid arteries
CPT/HCPCS: 93880

== ENCOUNTER → 2022-07-23 09:51 | Outpatient (CLI) | payer OTHER, SELFPAY ==
--- NOTE | ~2022-07-23 | MR_ITS ---
EXAMINATION: MR brain/brain stem wo/w con DATE: 07/23/2022 10:35 INDICATION: Temporal headache. TECHNIQUE: Magnetic resonance imaging (MRI) of the brain and brainstem was performed without and with 17 mL MultiHance intravenous contrast. COMPARISON: Head CT 12/15/21 FINDINGS: There is no intracranial hemorrhage, acute infarction, or abnormal intracranial mass lesion . The ventricles are normal in size. There is mild mucosal thickening in the ethmoid sinuses. The orb its are normal. The mastoid air cells are normal. IMPRESSION: 1. Normal brain. Reviewed, dictated and finalized at location A. IMPRESSION: 1. Normal brain.
== END ==
PROVIDERS: PCP Physician Assistant; Visit Provider Physician Assistant
DX: R51.9 Headache, unspecified (principal)
CPT/HCPCS: 70553; A9577

== ENCOUNTER 2023-03-09 17:44 | Emergency (ER) | payer BC, SELFPAY ==
[2023-03-09 17:54] VITALS: BP 114/60; PULSE 81; RESP 16; TEMP 36.8; O2SAT 100
[2023-03-09 17:55] VITALS: BP 114/60; PULSE 81; RESP 16; TEMP 36.8; O2SAT 100
--- NOTE | 2023-03-09 18:05 | ED.GENADULT ---
HPI - General Adult General Chief complaint: Upper Respiratory Infection Stated complaint: Sore Throat Source: patient Mode of arrival: ambulatory Limitations: no limitations History of Present Illness HPI narrative: patient presents for evaluation of sore throat for the last 4 days. She had a fever yesterday. She has mild bilateral ear pain and some cervical lymphadenopathy. She denies any chills, nausea, vomiting, diarrhea, shortness of breath, cough. 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 She does smoke approximately half a pack per day and also smokes marijuana. She is not taking any medications to assist with her symptoms. Related Data Allergies Allergy/AdvReac Type Severity Reaction Status Date / Time Penicillins Allergy Intermediate Nausea,ITCH Verified 03/09/23 17:54 ING codeine AdvReac Mild Nausea and Verified 03/09/23 17:54 Vomiting Review of Systems Review of Systems: CONSTITUTIONAL: Reports recent fever, none currently. Denies chills, or sweats. EYES: Denies visual changes, redness, or discharge. ENT: Reports sore throat and bilateral ear pain. Denies rhinorrhea, congestion CARDIOVASCULAR: Denies chest pain, palpitations, or edema. RESPIRATORY: Denies cough or dyspnea. GASTROINTESTINAL: Denies abdominal pain, nausea, vomiting, or diarrhea. GENITOURINARY: Denies dysuria or hematuria. SKIN: Denies rash or itching. MUSCULOSKELETAL: Denies back pain, joint pain, or myalgia. LYMPHATIC: reports cervical lymphadenopathy NEUROLOGIC: Denies headache, numbness, dizziness, or weakness. PSYCHIATRIC: Denies anxiety or depression. [facility] Past Medical History Medical History No active medical problems Surgical History Surgical History (Updated 07/20/22 @ 09:27 by Virginia Jennings MA) Delivery by section History of gynecological procedure mirena iud insertion - 04/29/2020 nola insertion -11/05/2016 removal 11/10/2018 [place] teeth removed Family History Family History Mother Bipolar 1 disorder Diabetes mellitus Chronic obstructive pulmonary disease Hypothyroid Grandparent Breast cancer Diabetes mellitus Chronic obstructive pulmonary disease Social History Social History (Updated 03/09/23 @ 18:12 by Miles Shay, [facility], ) Smoking packs per day: 0.5 Smoking cigarettes per day: 10.0 Years smoked: 15 Smoking pack-years: 7.50 Smoking status: Current every day smoker Tobacco type: cigarettes Second hand tobacco smoke exposure: No Substance use: current Substance use type: marijuana Spiritual care concerns: No Exam Narrative: GENERAL: Well-appearing, well-nourished, and in no acute distress. HEAD: Normocephalic, atraumatic. EYES: PERRLA and EOMI. ENT: Nares clear, no rhinorrhea or epistaxis. Mucous membranes moist. Bilateral tonsillar enlargement and erythema. No exudate. Uvula is midline. Bilateral TMs pearly hurtado nonbulging NECK: Supple. No adenopathy or masses. No carotid bruits or JVD CHEST: Clear to auscultation. No respiratory distress. No wheezes rales or rhonchi HEART: Regular rate and rhythm. No murmur heard. Normal peripheral pulses. ABDOMEN: Soft, nontender, nondistended, normal active bowel sounds. EXTREMITIES: Normal range of motion. No edema. SKIN: Warm, dry, no rash. NEURO: No focal deficits. Alert and oriented x3. PSYCH: Normal mood and affect. Course Course Emergency Course: This is a 38-year-old female who presented for evaluation sore throat after recent strep exposure. Strep positive. Will treat with amoxicillin. I did verify that she can take that and she is not allergic. Increase hydration. [id number] agents for symptom management. Advised on smoking cessation. Follow-up with primary provider. Go to the ER for difficulty breathing or swelling. Patient i
== END 2023-03-09 18:08 | disposition home or self-care (01) ==
PROVIDERS: Emergency Provider Nurse Practitioner; PCP Physician Assistant
DX: J02.0 Streptococcal pharyngitis (principal); F17.210 Nicotine dependence, cigarettes, uncomplicated; F12.90 Cannabis use, unspecified, uncomplicated
CPT/HCPCS: 87880; 99213; G0463

== ENCOUNTER 2025-11-11 10:01 | Emergency (ER) | payer OTHER, SELFPAY ==
--- NOTE | 2025-11-11 10:03 | ED.URI ---
HPI - URI/Sore Throat General Chief Complaint: Upper Respiratory Infection Stated Complaint: sore throat Time Seen by Provider: 11/11/25 10:15 Source: patient, RN notes reviewed and old records reviewed Mode of arrival: ambulatory Limitations: no limitations History of Present Illness HPI Narrative: 40-year-old female presents to the [facility] with complaints of a sore throat that started this morning. Patient has not taken anything for symptoms. States that 1 week ago she started with some that nasal congestion and nasal drainage. Has had body aches. Denies fevers. Patient has an IUD, denies any chances of . Treatments prior to arrival: none Related Data Home Medications ?Medication ?Instructions ?Recorded ?Confirmed ?Last Taken ?Type ergocalciferol (vitamin D2) 1,250 11/11/25 Unknown History mcg (50,000 unit) capsule Allergies Allergy/AdvReac Type Severity Reaction Status Date / Time Penicillins AdvReac Intermediate Nausea,ITCH Verified 11/11/25 10:21 ING codeine AdvReac Mild Nausea and Verified 11/11/25 10:21 Vomiting Review of Systems Review of Systems: All systems reviewed & are unremarkable except as noted in HPI and below Constitutional: Constitutional: Reports no additional constitutional complaints ENT: Reports as per HPI and Reports sore throat Cardiovascular: Cardiovascular: Reports no additional cardiovascular complaints, Denies chest pain and Denies dyspnea Respiratory: Respiratory: Reports no additional respiratory complaints, Denies chest congestion, Denies cough and Denies dyspnea Musculoskeletal: Musculoskeletal: Reports no additional musculoskeletal complaints Integumentary/Breasts: Skin/Breast: Reports system reviewed and no additional complaints, except as docu PMFSH Past Medical History Medical History No active medical problems Surgical History Surgical History (Updated 07/20/22 @ 09:27 by Virginia Montaño [facility]) Delivery by section History of gynecological procedure mirena iud insertion - 04/29/2020 nola insertion -11/05/2016 removal 11/10/2018 [place] teeth removed Family History Family History (Reviewed 03/09/23 @ 18:12 by Miles Shay, DIFFERENTIAL SPECIALIST, [employer] REPA[employer] TECHNICIAN) Mother Bipolar 1 disorder Diabetes mellitus Chronic obstructive pulmonary disease Hypothyroid Grandparent Breast cancer Diabetes mellitus Chronic obstructive pulmonary disease Social History Social History (Updated 03/09/23 @ 18:12 by Miles Shay, DIFFERENTIAL SPECIALIST, AUTO BODY REPAIR TECHNICIAN) Smoking packs per day: 0.5 Smoking cigarettes per day: 10.0 Years smoked: 15 Smoking pack-years: 7.50 Smoking status: Current every day smoker Tobacco type: cigarettes Second hand tobacco smoke exposure: No Substance use: current Substance use type: marijuana Spiritual care concerns: No Comments At the time of my signature, I reviewed and agree with the nursing past medical, surgical, social, and family history. There is no relevant family history pertinent to the patient complaint. Exam Const: General: cooperative, healthy appearing, comfortable, no acute distress, well developed, alert and well nourished Nutritional Appearance: well nourished Orientation/consciousness: patient oriented x3 Limitations: no limitations HENMT: Head: normal to inspection Ears: hearing grossly normal bilaterally, external ears normal, TM's normal bilaterally, EAC's normal, mastoids normal and no periauricular adenopathy Face and sinus: normal facial exam and face symmetric Mouth: Yes Normal oral and palatal mucosa present, Yes lip normal, Yes tongue normal and Yes moist mucous membranes Throat: uvula midline, normal tonsils, posterior oropharynx abnormal erythema; no cobblstoning, no edema, no exudates, no lacerations and no foreign body and no uvular edema Eyes: General: appearance normal, both eyes and all related structures Alignment and Position: alignment normal Neck: Neck: normal visual inspection, full ROM, no lymphadenopathy and no meningeal signs Chest: Chest palpation & inspection: normal inspection of the chest Resp: Effort & Inspection: normal respiratory effort and able to speak in complete sentences Auscultation: clear to auscultation bilaterally, no crackles, no rales, no rhonchi and no wheezes Cardio: Rate: regular rate Skin: General skin exam: normal color and no rashes or lesions noted Neuro: General: patient oriented x3, gait normal, moves all extremities and no meningeal signs Cognition (Neuro): normal cognition Speech: normal speech Gait exam (Neuro): Normal gait present Extrem: General: normal to inspection, full ROM, capillary refill normal and normal gait Psych: Appearance: grossly normal and well kempt Mental Status: mental status grossly normal Speech and movement: Normal speech and movement present and Clear speech present Affect: normal affect Attitude: cooperative Course Course Level of Care: Express Care Visit Vital Signs Vital signs: Vital Signs Temperature 98.9 F 11/11/25 10:14 Pulse Rate 99 11/11/25 10:14 Respiratory Rate 18 11/11/25 10:14 Blood Pressure 109/69 11/11/25 10:14 Pulse Oximetry 100 11/11/25 10:14 Oxygen Delivery Room Air 11/11/25 10:14 Temperature 98.9 F 11/11/25 10:14 Pulse Rate 99 11/11/25 10:14 Respiratory Rate 18 11/11/25 10:14 Blood Pressure 109/69 11/11/25 10:14 Pulse Oximetry 100 11/11/25 10:14 Oxygen Delivery Room Air 11/11/25 10:14 reviewed MDM MDM Narrative Medical decision making narrative: Patient sitting in exam room. Patient is nontoxic, vitals stable. Patient presents with a sore throat this morning, URI symptoms for approximately 1 week. No treatment prior to arrival. Due to patient's allergy to penicillin will prescribed azithromycin. Patient is positive for strep throat. Negative flu and COVID. Patient is appropriate for outpatient treatment with close follow-up Discharge instructions reviewed with patient, as well as provided in writing per nursing staff. The instructions also include specific and strict return/GO TO THE ER as well as f/u information. All questions have been answered, and the patient deny any further questions with discharge and discharge plan. Some parts of this dictation were generated by voice recognition software and may contain typographical and/or grammatical inaccuracies. Differential Diagnosis Differential Diagnosis: Differential diagnostic considerations for upper respiratory infection include upper respiratory infection,otitis media, sinusitis, viral infection, bronchitis, influenza, pharyngitis, strep, uvulitis.? Lab Data Labs: Lab Results 11/11/25 11/11/25 Range/Units 10:11 10:25 POC Influenza A Ag Negative (Negative) POC Influenza B Ag Negative (Negative) POC SARS CoV-2 Ag Negative (Negative) POC Grp A Strep Screen Positive (Negative) reviewed Discharge Plan Discharge Clinical Impression: Strep pharyngitis Patient Disposition: Home Condition: Stable Instructions: Antibiotic Form, Strep Throat (ED) Additional Instructions: After 24-48 hours on antibiotics, Throw the toothbrush away, start using a new one. Please be sure to wash bed linens especially pillow cases. Repeat once you finish the antibiotics. Do not share drinks. Take Motrin alternating with Tylenol for pain and fever alternating every 4 hours. Increase fluids, avoid caffeine. Give plenty of water, juice, Gatorade, Pedialyte, ice pops in Jell-O Follow up with Primary provider if not getting better this week For new or worsening symptoms go directly to the emergency room Patient Language: Greek Prescriptions: New azithromycin 500 mg tablet 500 mg PO DAILY 5 Days Qty: 5 0RF No Action ergocalciferol (vitamin D2) 1,250 mcg (50,000 unit) capsule Follow-up/Referrals: Bradly,CONCEPCIÓN Velasquez [Primary Care Provider, Unknown] - 2 Weeks Stand Alone Forms: Work/School Release IP Time of Disposition: 10:22
[2025-11-11 10:14] VITALS: BP 109/69; PULSE 99; RESP 18; TEMP 37.2; O2SAT 100
[2025-11-11 10:22] LABS: EDSTREPNEGPOS1 Positive (Negative)
[2025-11-11 10:36] LABS: EDCOVIDSCREEN Negative (Negative); EDINFLUASCREEN Negative (Negative); EDINFLUBSCREEN Negative (Negative)
== END 2025-11-11 10:26 | disposition home or self-care (01) ==
PROVIDERS: Emergency Provider Nurse Practitioner; PCP Physician Assistant
DX: J02.0 Streptococcal pharyngitis (principal); Z20.822 Contact with and (suspected) exposure to COVID-19; F17.210 Nicotine dependence, cigarettes, uncomplicated
CPT/HCPCS: 87426; 87804; 87880; 99213; G0463